=== PATIENT | male | born 1975 | race Caucasian/White ===

== ENCOUNTER → 2019-11-08 | Outpatient (CLI) | payer OTHER ==
--- NOTE | 2019-11-08 16:23 | REP ---
Clinical: Dyspnea. Technique: PA and lateral. Findings: Mediastinum and cardiac silhouette are normal. Lung garcia are clear without focal consolidation, effusion, or pneumothorax. Skeletal structures are intact. Impression: No focal consolidation or effusion. Electronically Signed by Jl Ayers MD 11/08/2019 04:15 P
== END ==
LOC: M LRY 15:57
PROVIDERS: ATTEND Nurse Practitioner Family
DX: R68.89 Other general symptoms and signs (principal)

== ENCOUNTER → 2019-11-08 | Outpatient (REF) | payer OTHER | LOC: M SFHCLERA 15:47 | PROVIDERS: ATTEND Nurse Practitioner Family | DX: R68.89 Other general symptoms and signs (principal) ==

== ENCOUNTER 2023-03-26 13:35 | Emergency (ER) | payer OTHER ==
[~2023-03-26] VITALS: Ht 170.2 cm; Wt 98.6 kg
[2023-03-26 13:36] VITALS: TEMP 97.3
[2023-03-26 14:31] LABS: BASO % 0.5 % (0.0-1.0); EOS # 0.2 10^3/uL (0.0-0.5); EOS % 3.2 % (0.0-3.0); HEMATOCRIT 44.8 % (42.0-52.0); HEMOGLOBIN 15.2 g/dl (13.5-17.5); LYMPH # 2.1 10^3/uL (1.5-5.0); MEAN CORPUSCULAR HEMOGLOBIN 29.2 pg (27.0-33.0); MEAN CORPUSCULAR HGB CONC 33.9 g/dl (32.0-36.5); MEAN CORPUSCULAR VOLUME 86.2 fl (80.0-96.0); MONO # 0.8 10^3/uL (0.0-0.8); MONO % 11.1 % (2.0-8.0); NEUTROPHILS # 4.2 10^3/uL (1.5-8.5); NEUTROPHILS % 56.4 % (36.0-66.0); PLATELET COUNT, AUTOMATED 286 10^3/uL (150-450); WHITE BLOOD COUNT 7.4 10^3/uL (4.0-10.0)
[2023-03-26] MEDS ORDERED: MORPHINE 2 MG/ML 1ML VIAL IV ONE (14:45)
[2023-03-26 14:56] LABS: LIPASE 91 U/L (12-53)
[2023-03-26 14:58] LABS: ALBUMIN 3.8 G/DL (3.2-5.2); ALKALINE PHOSPHATASE 96 U/L (46-116); ALT/SGPT 23 U/L (7.0-40); AST/SGOT 9 U/L (<34); BILIRUBIN,DIRECT 0.1 MG/DL (<0.4); BILIRUBIN,TOTAL 0.5 MG/DL (0.3-1.2); BLOOD UREA NITROGEN 12 MG/DL (9-23); CALCIUM LEVEL 10.3 MG/DL (8.5-10.1); CARBON DIOXIDE LEVEL 26 MMOL/L (20-31); CHLORIDE LEVEL 97 MMOL/L (98-107); CREATININE FOR GFR 0.65 MG/DL (0.70-1.30); GLOMERULAR FILTRATION RATE > 60.0 (>60); GLUCOSE, FASTING 344 MG/DL (60-100); POTASSIUM SERUM 3.9 MMOL/L (3.5-5.1); SODIUM LEVEL 135 MMOL/L (136-145); TOTAL PROTEIN 7.7 G/DL (5.7-8.2)
[2023-03-26 15:01] LABS: CK-MB VALUE MASS < 1.0 NG/ML (<3.6)
[2023-03-26 15:02] LABS: CPK CREATINE PHOSPHOKINASE 79 U/L (46-171); MB/CK RELATIVE INDEX 1.26 (< OR =4)
[2023-03-26] MEDS ORDERED: ISOVUE-370 76% 100ML VIAL As Ordered ONE (15:10)
[2023-03-26 15:48] LABS: CK-MB VALUE MASS < 1.0 NG/ML (<3.6)
[2023-03-26 15:54] LABS: CPK CREATINE PHOSPHOKINASE 80 U/L (46-171); MB/CK RELATIVE INDEX 1.25 (< OR =4)
[2023-03-26] MEDS ORDERED: HumuLIN R (REGULAR) INSULIN (NovoLIN R) **100U/ML** PER UNIT IV ONE (17:15)
[2023-03-26 18:30] VITALS: BP 126/69; O2SAT 96
== END 2023-03-26 18:43 | disposition home or self-care (01) ==
LOC: M ED 13:35
DX: R07.9 Chest pain, unspecified (principal); E11.65 Type 2 diabetes mellitus with hyperglycemia; M79.601 Pain in right arm; R59.0 Localized enlarged lymph nodes; R74.8 Abnormal levels of other serum enzymes; I10 Essential (primary) hypertension
CPT/HCPCS: 71046; 71275; 73030; 73060; 74177; 80048; 80076; 82550; 82553; 83690; 84484; 85025; 93005; 93041; 93971; 96374; 96375; 99285; J1815; Q9967